=== PATIENT | female | born 1995 | race Two or more races ===

== ENCOUNTER 2018-12-04 10:35 | Emergency (ER) | payer BC ==
[~2018-12-04] VITALS: Ht 165.1 cm; Wt 60.6 kg
[2018-12-04 13:16] VITALS: BP 116/76
== END 2018-12-04 13:19 | disposition home or self-care (01) ==
LOC: ED 13:13
DX: M25.461 Effusion, right knee (principal)
CPT/HCPCS: 73564; 93971; 96372; 99284; J1885

== ENCOUNTER 2019-04-08 05:30 | Emergency (ER) | payer BC ==
[~2019-04-08] VITALS: Ht 165.1 cm; Wt 57.9 kg
[2019-04-08] MEDS ORDERED: SODIUM CHLORIDE FLUSH 10ML SYR IVF ONE (06:00)
[2019-04-08] MEDS ORDERED: ONDANSETRON 2MG/ML, 2ML IVPush ONE (06:00)
--- NOTE | 2019-04-08 06:20 | NUR ---
RN to bedside, patient resting comfortably, informed of order for zofran, patient declines, report no nausea at this time. Provider to bedside, patient answers questions clear and concisely. Urine sample collected and transported by hand to the laboratory. survey cad technician to bedside immediately after patient out of room. Awaiting return
[2019-04-08 06:25] LABS: BASOPHILS # (AUTO) 0.03 x10^3/uL (0-0.1); BASOPHILS % (AUTO) 0 % (0-1); EOSINOPHILS # (AUTO) 0.07 x10^3/uL (0-0.4); EOSINOPHILS % (AUTO) 1 % (1-7); LYMPHOCYTES # (AUTO) 1.79 x10^3/uL (1-3.4); LYMPHOCYTES % (AUTO) 22 % (22-44); MD NO; MEAN CORPUSCULAR HEMOGLOBIN 32.7 pg (27.0-34.8); MEAN CORPUSCULAR HGB CONC 33.6 g/dL (32.4-35.8); MEAN CORPUSCULAR VOLUME 97.3 fL (80-100); MEAN PLATELET VOLUME 8.8 fL (7.4-10.4); MONOCYTES # (AUTO) 0.57 x10^3/uL (0.2-0.8); MONOCYTES % (AUTO) 7 % (2-9); NEUTROPHILS # (AUTO) 5.75 x10^3/uL (1.8-6.8); NEUTROPHILS % (AUTO) 70 % (42-75); PLATELET COUNT 189 x10^3/uL (130-400); RED BLOOD COUNT 4.36 x10^6/uL (3.82-5.3); RED CELL DISTRIBUTION WIDTH 13.7 % (9.6-15.2)
[2019-04-08 06:34] LABS: ALANINE AMINOTRANSFERASE 16 U/L (12-78); ALBUMIN 3.9 g/dL (3.4-5.0); ANION GAP 7 mmol/L (5-15); CALCIUM 8.7 mg/dL (8.5-10.1); CHLORIDE 109 mmol/L (98-107)
[2019-04-08 06:37] LABS: ALKALINE PHOSPHATASE 49 U/L (45-117); BILIRUBIN,TOTAL 1.1 mg/dL (0.2-1.0); CREATININE 0.65 mg/dL (0.55-1.02); TOTAL PROTEIN 7.1 g/dL (6.4-8.2)
--- NOTE | 2019-04-08 06:48 | NUR ---
Gave report to Del. Patient just returned from imaging. Awaiting plan of care.
[2019-04-08 06:49] LABS: HCG UR SG 1.027 (1.003-1.030)
[2019-04-08 06:52] LABS: CULTURE INDICATED? YES; MICROSCOPIC INDICATED
--- NOTE | 2019-04-08 07:01 | NUR ---
Back from ultrasond Report from Fernando montalvo With reassessment patient denies pain/feeling faint/dizzy vss on nibp/pox. After clarification with provider-patient given po fluids/solids & provided with rough estimated poc
[2019-04-08 07:03] VITALS: BP 103/56
--- NOTE | 2019-04-08 08:16 | NUR ---
After much coaching patient provided proper clean catch urine sample-sent to lab
[2019-04-08 08:27] LABS: MICROSCOPIC AUTO
[2019-04-08 08:28] LABS: CULTURE INDICATED? YES
--- NOTE | 2019-04-08 08:49 | NUR ---
PIV PLACED, THEN TO ULTRASOUND AT [id number]
[2019-04-08] MEDS ORDERED: OMNIPAQUE 350 MG/ML, 100ML BOTTLE ONE (09:03)
[2019-04-08] MEDS ORDERED: NEOSPORIN OINT. PKT 1 PACKET ONE (09:28)
--- NOTE | 2019-04-08 09:46 | NUR ---
Laceration to right brow- cleansed-no lac noted, only small abrasion noted. neosporin applied/bandaid applied Placed up for recheck as all testing results posted
[2019-04-08] MEDS ORDERED: IBUPROFEN 600 MG TABLET ONE (10:20)
[2019-04-08] MEDS ORDERED: IBUPROFEN 600 MG TABLET PO ONE (10:30)
== END 2019-04-08 10:38 | disposition home or self-care (01) ==
LOC: ED 06:37
DX: N30.00 Acute cystitis without hematuria (principal); R10.31 Right lower quadrant pain
CPT/HCPCS: 36415; 74177; 76830; 80053; 81001; 81025; 85025; 87077; 87086; 93005; 99284; Q9967; 87186